=== PATIENT | male | born 1950 | race Caucasian/White ===

== ENCOUNTER 2022-06-13 10:51 | Outpatient (CLI) | payer OTHER, SELFPAY ==
[2022-06-13 18:47] LABS: Albumin* 4.1 g/dL (3.3-5.0)
[2022-06-13 18:48] LABS: Chloride* 104 mmol/L (96-114); Potassium* 4.4 mmol/L (3.6-5.1); Sodium* 141 mmol/L (135-149)
[2022-06-13 18:50] LABS: Aspartate Amino Transferase* 27 U/L (12-35); Bilirubin Total* 0.8 mg/dL (0.1-1.5); Carbon Dioxide* 26 mmol/L (20-32); Cholesterol* 136 mg/dL (90-199); Creatinine* 1.5 mg/dL (0.5-1.5); Estimated Glomerular Filt Rate 49 ml/min; Total Protein* 7.1 g/dL (6.0-8.3)
[2022-06-13 18:51] LABS: Alanine Aminotransferase* 24 U/L (4-50); Alkaline Phosphatase* 108 U/L (40-150); Blood Urea Nitrogen* 27 mg/dL (7-30); Glucose* 161 mg/dL (60-115); Triglycerides* 319 mg/dL (40-149)
[2022-06-13 18:52] LABS: HDL Cholesterol* 35 mg/dL (>=40); LDL Cholesterol Calculated 37 mg/dL (<100)
== END 2022-06-13 10:52 | disposition home or self-care (01) ==
PROVIDERS: PCP Family Medicine; Visit Provider Family Medicine
DX: E13.9 Other specified diabetes mellitus without complications (principal); E78.5 Hyperlipidemia, unspecified; I10 Essential (primary) hypertension; E66.9 Obesity, unspecified; Z13.29 Encounter for screening for other suspected endocrine disorder
CPT/HCPCS: 80053; 80061; 84443

== ENCOUNTER 2022-07-04 11:27 | Outpatient (CLI) | payer OTHER, SELFPAY | END 2022-07-04 11:28 | disposition home or self-care (01) | LOC: AMB 08-14 13:06 | PROVIDERS: PCP Family Medicine; Visit Provider Family Medicine | DX: R53.1 Weakness (principal); R05.9 Cough, unspecified | CPT/HCPCS: A0425; A0427 ==